=== PATIENT | female | born 1975 | race Caucasian/White ===

== ENCOUNTER 2020-09-18 02:35 | Observation (INO) ==
[2020-09-18] MEDS ORDERED: Acetaminophen 325 MG TABLET PO PRN ×2 (06:19→18:36)
[2020-09-18] MEDS ORDERED: Naloxone 0.4 MG/ML INJ IVP PRN ×2 (06:19→18:36)
[2020-09-18] MEDS ORDERED: Ondansetron 4 MG/2 ML VIAL IVP PRN ×2 (06:19→18:36)
[2020-09-18] MEDS: Ringers Solution, Lactated 1,000 ML IVC SCH ×2 (06:39→18:48)
[2020-09-18] MEDS ORDERED: Ketorolac 15 MG/ML VIAL IVP PRN (07:04)
[2020-09-18 07:09] LABS: Basophils % 0.3 %; Eosinophils # 0.1 K/mcL (0.0-0.6); Eosinophils % 1.5 %; Hematocrit 37.2 % (35.3-44.9); Hemoglobin 10.8 g/dL (11.5-15.4); Immature Granulocytes % 0.4 % (0-4); Lymphocytes % 25.7 %; Mean Corpuscular Hemoglobin 21.5 pg (28.0-33.3); Mean Platelet Volume 9.4 fL (9.4-12.4); Monocytes # 0.7 K/mcL (0.0-1.3); Platelet Count 381 K/mcL (140-400); Red Blood Count 5.03 M/mcL (3.82-4.97); Red Cell Distribution Width 20.3 % (11.5-14.5); Segmented Neutrophils % 63.1 %; White Blood Count 7.9 K/mcL (4.3-11.1)
[2020-09-18 07:10] LABS: INR 0.9; Prothrombin Time 10.6 Seconds (9.4-12.1)
[2020-09-18 07:30] LABS: Alanine Aminotransferase 23 Units/L (7-52); Albumin 3.7 g/dL (3.5-5.7); Albumin/Globulin Ratio 1.2 (1.1-2.2); Alkaline Phosphatase 75 Units/L (34-104); Aspartate Amino Transferase 19 Units/L (13-39); BUN/Creatinine Ratio 18 (6-26); Bilirubin,Total 0.3 mg/dL (0.3-1.0); Blood Urea Nitrogen 16 mg/dL (6-20); Calcium 10.4 mg/dL (8.6-10.3); Carbon Dioxide 25 mEq/L (23-29); Chloride 106 mEq/L (98-107); Globulin 3.1 g/dL (2.4-3.5); Glucose 134 mg/dL (70-105); Osmolality,Calculated 291 (280-300); Potassium 3.8 mEq/L (3.5-5.1); Sodium 139 mEq/L (136-145); Total Protein 6.8 g/dL (6.4-8.9); eGFR For African Americans > 60 (> 60); eGFR For Non-African Americans > 60 (> 60)
[2020-09-18] MEDS ORDERED: Ketorolac 30 MG/ML VIAL IVP PRN ×2 (07:36→18:36)
[2020-09-18 11:16] LABS: Lipase 27 Units/L (11-82); Magnesium 1.8 mg/dL (1.6-2.6); Phosphorous 3.9 mg/dL (2.7-4.5)
[2020-09-18] MEDS ORDERED: Ondansetron 4 MG/2 ML VIAL ONE (14:59)
[2020-09-18] MEDS ORDERED: *HR* Rocuronium Bromide 50 MG/5 ML VIAL ONE (14:59)
[2020-09-18] MEDS ORDERED: *HR* Succinylcholine 200 MG/10 ML VIAL IVP ONE (14:59)
[2020-09-18] MEDS ORDERED: Lidocaine -MPF 2% 2 ML VIAL ONE (14:59)
[2020-09-18] MEDS ORDERED: Dexamethasone 4 MG/ML VIAL ONE (14:59)
[2020-09-18] MEDS ORDERED: *HR* Midazolam HCl 2 MG/2 ML VIAL ONE (14:59)
[2020-09-18] MEDS ORDERED: *HR* FentaNYL (PF) 100 MCG/2 ML VIAL ONE (14:59)
[2020-09-18] MEDS ORDERED: *HR* Propofol 200 MG/20 ML VIAL IVP ONE (14:59)
[2020-09-18] MEDS ORDERED: Lidocaine HCL 4 ML Topical Solution (Laryng-O-Jet Kit Sterile Pak) TP ONE (15:59)
[2020-09-18] MEDS ORDERED: Isovue-300 50ML VIAL ONE (16:54)
[2020-09-18] MEDS ORDERED: Sugammadex Sodium 200 MG/2 ML VIAL IV ONE (17:02)
[2020-09-18] MEDS: *HR* Meperidine 25 MG/ML SYRINGE IVP PRN ×2 (17:45→18:00)
[2020-09-18] MEDS ORDERED: Ringers Solution, Lactated 1,000 ML IVC SCH (18:36)
[2020-09-19] MEDS ORDERED: Ringers Solution, Lactated 1,000 ML IVC SCH (02:45)
[2020-09-19 05:21] LABS: Hematocrit 32.8 % (35.3-44.9); Hemoglobin 9.6 g/dL (11.5-15.4); Mean Corpuscular HGB Conc 29.3 g/dL (31.6-35.5); Mean Corpuscular Hemoglobin 21.7 pg (28.0-33.3); Mean Corpuscular Volume 74.2 fL (83.0-100.0); Mean Platelet Volume 9.8 fL (9.4-12.4); Platelet Count 292 K/mcL (140-400); Red Blood Count 4.42 M/mcL (3.82-4.97)
[2020-09-19 05:35] LABS: BUN/Creatinine Ratio 14 (6-26); Blood Urea Nitrogen 13 mg/dL (6-20); Calcium 9.5 mg/dL (8.6-10.3); Carbon Dioxide 24 mEq/L (23-29); Chloride 102 mEq/L (98-107); Glucose 142 mg/dL (70-105); Osmolality,Calculated 283 (280-300); Potassium 3.7 mEq/L (3.5-5.1); Sodium 135 mEq/L (136-145); White Blood Count 15.8 K/mcL (4.3-11.1); eGFR For African Americans > 60 (> 60); eGFR For Non-African Americans > 60 (> 60)
[2020-09-19] MEDS ORDERED: *HR* Enoxaparin 40 MG/0.4 ML SYRINGE SQ SCH ×2 (06:00)
[2020-09-19] MEDS ORDERED: Ergocalciferol (VIT D2) 50,000 UNIT (1.25MG) CAP PO SCH (09:00)
[2020-09-19] MEDS: Budesonide/Formoterol 160/4.5 1 PUFF INH IH SCH (10:25)
[2020-09-19] MEDS: Loratadine 10 MG TABLET PO SCH (10:37)
[2020-09-19] MEDS: FLUoxetine 20 MG CAPSULE PO SCH (10:37)
[2020-09-19 10:48] LABS: Bilirubin,Urine Negative (Negative); Blood,Urine Large (Negative); Clarity,Urine Ex.Turbid (Clear); Color,Urine Red (Yellow); Glucose,Urine (UA) Normal (Normal); Ketones,Urine Negative (Negative); Leukocyte Esterase,Urine Moderate (Negative); Nitrite,Urine Negative (Negative); Protein,Urine 100 mg/dL (Neg-Trace); Urobilinogen,Urine Normal (Normal)
[2020-09-19] MEDS: cefTRIAXone 1,000 MG in 0.9 % Sodium Chloride Mini Bag 100 ML IVPB SCH ×2 (10:50→11:25)
[2020-09-19 11:21] LABS: RBC,Urine TNTC per hpf (0-3); Squamous Epithelial Cell,Urine Few per hpf (None-Few); Transitional Epi Cells,Urine Few per hpf (None-Few)
[2020-09-19 11:28] LABS: Renal Epithelial Cells,Urine Few per hpf (None-Few)
[2020-09-20 04:55] LABS: Basophils % 0.2 %; Eosinophils # 0.2 K/mcL (0.0-0.6); Eosinophils % 2.5 %; Hemoglobin 9.6 g/dL (11.5-15.4); Immature Granulocytes % 0.4 % (0-4); Lymphocytes # 1.6 K/mcL (0.6-4.6); Lymphocytes % 16.8 %; Mean Corpuscular Hemoglobin 22.6 pg (28.0-33.3); Mean Corpuscular Volume 75.5 fL (83.0-100.0); Monocytes # 0.5 K/mcL (0.0-1.3); Monocytes % 5.3 %; Neutrophils # 7.1 K/mcL (1.6-8.9); Nucleated Red Blood Cells 0.2 /100 WBC (0); Platelet Count 278 K/mcL (140-400); Red Blood Count 4.24 M/mcL (3.82-4.97); Red Cell Distribution Width 20.5 % (11.5-14.5); Segmented Neutrophils % 74.8 %; White Blood Count 9.5 K/mcL (4.3-11.1)
[2020-09-20] MEDS: Budesonide/Formoterol 160/4.5 1 PUFF INH IH SCH (08:05)
[2020-09-20 08:21] VITALS: BP 123/71
[2020-09-20] MEDS: Loratadine 10 MG TABLET PO SCH (09:21)
[2020-09-20] MEDS: FLUoxetine 20 MG CAPSULE PO SCH (09:21)
[2020-09-20] MEDS: cefTRIAXone 1,000 MG in 0.9 % Sodium Chloride Mini Bag 100 ML IVPB SCH (09:22)
[2020-09-20 11:19] LABS: Estimated Average Glucose 134 mg/dl; Hemoglobin A1C 6.3 %
[2020-09-23 13:05] LABS: Calculi Mass 16 mg
== END 2020-09-20 11:01 | disposition home or self-care (01) ==
LOC: 3ANU → SUATTDRO 04:53
PROVIDERS: ADMIT Internal Medicine; ATTEND Internal Medicine